=== PATIENT | female | born 1985 | race Caucasian/White ===

== ENCOUNTER 2024-10-28 09:25 | Emergency (ER) | payer MEDICAID ==
[2024-10-28] MEDS ORDERED: Tranexamic Acid 1,000 MG in Sodium Chloride 0.9% 50 ML IV ONE (10:01)
[2024-10-28] MEDS ORDERED: Ketorolac 30 MG/ML SDV IVPUSH ONE (10:01)
[2024-10-28] MEDS: Ketorolac 30 MG/ML SDV IVPUSH ONE (10:21)
[2024-10-28] MEDS: Sodium Chloride 0.9% 10 ML Syringe FLUSH PRN (10:21)
[2024-10-28] MEDS: Acetaminophen/oxyCODONE 325-5 MG Tab PO STA (10:21)
[2024-10-28] MEDS: Tranexamic Acid in NACL,ISO-OS 1,000 MG in Premix Bag 1 BAG IV ONE (10:47)
== END 2024-10-28 11:40 | disposition home or self-care (01) ==
LOC: FB.ED 09:25
DX: N93.9 Abnormal uterine and vaginal bleeding, unspecified (principal); N94.6 Dysmenorrhea, unspecified; F17.210 Nicotine dependence, cigarettes, uncomplicated; Z88.5 Allergy status to narcotic agent; Z88.8 Allergy status to other drugs, medicaments and biological substances; Z79.899 Other long term (current) drug therapy
CPT/HCPCS: 85018; 96365; 96375; 99284-25; A9270-GY; J1885; J3490